=== PATIENT | male | born 2000 | race Caucasian/White ===

== ENCOUNTER 2023-05-09 18:32 | Emergency (ER) | payer SELFPAY ==
[2023-05-09 18:37] VITALS: BP 94/62; PULSE 64; RESP 18; TEMP 36.3; O2SAT 100; BMI 17.6
--- NOTE | 2023-05-09 18:47 | ED_ITS ---
HPI - Abdominal Pain General Chief Complaint: Nausea/Vomiting/Diarrhea Stated Complaint: Nausea/Vomiting Time Seen by Provider: 05/09/23 18:33 Source: patient Mode of arrival: walk-in Limitations: no limitations History of Present Illness HPI narrative: patient is a 22-year-old male who presents to the emergency department for the evaluation of abdominal pain and vomiting for the last three hours. Patient denies diarrhea or urinary symptoms. He reports generalized abdominal pain. He has not had any objective fevers. He states he is urinating without difficulty. No medications taken prior to arrival. No sick contacts in the home. He is not able to localize one area of abdominal pain. No flank or back pain. Related Data Previous Rx's Medication Instructions Recorded ondansetron 4 mg disintegrating 4 mg PO Q6H PRN nausea and 05/09/23 tablet vomiting #12 tabs pantoprazole 40 mg tablet,delayed 40 mg PO DAILY #7 tabs 05/09/23 release (Protonix) Allergies Allergy/AdvReac Type Severity Reaction Status Date / Time No Known Drug Allergies Allergy Verified 05/09/23 18:41 Review of Systems ROS Constitutional Denies: fever or chills Ears, nose, mouth, and throat Denies: throat pain or nasal congestion Cardiovascular Denies: chest pain Respiratory Denies: shortness of breath or cough Gastrointestinal Reports: abdominal pain, nausea and vomiting; Denies: diarrhea Musculoskeletal Denies: back pain or neck pain Integumentary/Breast Denies: rash Neurological Denies: headache PFSH PFSH Social History Smoking status: Current every day smoker Exam Narrative Exam Narrative: Gen.: Awake, alert, in no distress Head: Normocephalic, atraumatic ENT: Moist mucous membranes Respiratory: No respiratory distress, lungs clear bilaterally Cardio: Regular rate and rhythm Gastrointestinal: Abdomen is soft, nondistended with no focal areas of tenderness. No McBurney's tenderness, no guarding or rebound Extremities: Moves extremities equally Psych: Normal mood and affect Neuro: No focal neuro deficit Skin: Warm, dry, intact Constitutional Vital Signs, click to edit/add: Last Vital Signs Temp 97.4 F L 05/09/23 18:37 Pulse 64 05/09/23 18:37 Resp 18 05/09/23 18:37 BP 94/62 05/09/23 18:37 Pulse Ox 100 05/09/23 18:37 O2 Del Method Room Air 05/09/23 18:37 Course Vital Signs Vital signs: Vital Signs Temperature 97.4 F L 05/09/23 18:37 Pulse Rate 64 05/09/23 18:37 Respiratory Rate 18 05/09/23 18:37 Blood Pressure 94/62 05/09/23 18:37 Pulse Oximetry 100 05/09/23 18:37 Oxygen Delivery Method Room Air 05/09/23 18:37 Temperature 97.4 F L 05/09/23 18:37 Pulse Rate 64 05/09/23 18:37 Respiratory Rate 18 05/09/23 18:37 Blood Pressure 94/62 05/09/23 18:37 Pulse Oximetry 100 05/09/23 18:37 Oxygen Delivery Method Room Air 05/09/23 18:37 MDM - Abdominal Pain MDM Narrative Medical decision making narrative: patient was medicated with IV fluids, Zofran, Levsin and Protonix. He continued to have some complaints of nausea and hiccuping and was given IV Thorazine. He was able to tolerate ice chips. Lab studies are grossly unremarkable, bilirubin is slightly elevated. Patient has no focal tenderness in the right upper quadrant. CT of abdomen and pelvis with no evidence of cholelithiasis or cholecystitis. There is evidence of periportal edema noted by the radiologist, patient has normal LFTs, no transaminitis in the Emergency Room. He'll be discharged home with symptomatic treatment for nausea and vomiting. He was noted to have THC present on a urine drug screen, possible cyclic vomiting contributing to symptoms. Patient with abdomen soft and benign in the Emergency Room, he is discharged home with stable vital signs. Follow-up with primary care provider and return to the Emergency Room if symptoms change or worsen. Medical Records Attestation: I reviewed the patient's medical records. Lab Data Attestation: I reviewed the patient's lab results. Labs: Lab Results 05/09/23 Range/Units 18:48 WBC 12.6 H (4.0-11.0) 10^3/uL RBC 4.82 (4.70-6.10) 10^6/uL Hgb 15.2 (14.0-18.0) g/dL Hct 43.3 (42.0-54.0) % MCV 89.8 (80.0-94.0) fL MCH 31.5 (25.9-34.0) pg MCHC 35.1 (29.9-35.2) g/dL RDW 10.9 L (11.0-15.0) % Plt Count 354 (150-450) 10^3/uL MPV 9.8 (9.5-13.5) fL Neut % (Auto) 83.1 H (43.0-75.0) % Lymph % (Auto) 13.1 L (20.5-60.0) % [place] % (Auto) 3.3 (1.7-12.0) % Eos % (Auto) 0.0 L (0.9-7.0) % Baso % (Auto) 0.3 (0.2-2.0) % Neut # (Auto) 10.5 H (1.4-6.5) 10^3/uL Lymph # (Auto) 1.7 (1.2-3.8) 10^3/uL [place] # (Auto) 0.4 (0.3-0.8) 10^3/uL Eos # (Auto) 0.0 (0.0-0.7) 10^3/uL Baso # (Auto) 0.0 (0.0-0.1) 10^3/uL Abs Immat Gran (auto) 0.03 (0.00-0.03) 10^3/uL Imm/Tot Granulo (auto) 0.2 (0.0-0.5) % Sodium 138 (136-145) mmol/L Potassium 3.7 (3.5-5.1) mmol/L Chloride 101 (98-107) mmol/L Carbon Dioxide 25.4 (21.0-32.0) mmol/L Anion Gap 15.3 BUN 18.0 (7.0-18.0) mg/dL Creatinine 1.18 (0.70-1.30) mg/dL Est GFR ( Amer) >60 (>=60) Est GFR (Non-Af Amer) >60 (>=60) BUN/Creatinine Ratio 15.3 Glucose 134 H (74-106) mg/dL Calcium 9.4 (8.5-10.1) mg/dL Total Bilirubin 1.7 H (0.2-1.0) mg/dL AST 20 (15-37) U/L ALT 18 (16-63) U/L Alkaline Phosphatase 62 (46-116) U/L Total Protein 7.9 (6.4-8.2) g/dL Albumin 5.0 (3.4-5.0) g/dL Globulin 2.9 g/dL Albumin/Globulin Ratio 1.7 Lipase 29.0 (16.0-77.0) U/L Imaging Data CT scan - abdomen: Attestation: I have reviewed the pertinent imaging results. Radiologist's impression: Procedure: CT abdomen pelvis w con CT SCAN OF THE ABDOMEN AND PELVIS WITH CONTRAST, 05/09/2023 8:04 PM EDT COMPARISON: CT scan of the abdomen and pelvis, 08/09/2016. CLINICAL HISTORY: abdominal pain and vomiting, mucus buildup, shortness of breath, body aches for 3 hours. TECHNIQUE: 3 mm axial images performed through the abdomen and pelvis following administration of 100 mL of intravenous Omnipaque 350. 3 mm delayed acquisitions performed through the lower pelvis. 3 mm coronal and sagittal MPR reconstruction performed through the abdomen and pelvis. Dose reduction techniques were achieved by using automated exposure control and/or adjustment of mA and/or kV according to patient size and/or use of iterative reconstruction technique. ABDOMINAL CT SCAN FINDINGS: Lung bases are clear. Visualized heart is normal in size with no pericardial effusion. Mild periportal edema suspected. Remaining solid organs and gallbladder unremarkable in appearance. No significant adenopathy. Pelvic CT findings: Prostate and seminal vesicles unremarkable in appearance. Moderate amount of fecal matter in the rectum. No bowel obstruction identified. Appendix is normal. No acute osseous abnormality. IMPRESSION: 1. Mild periportal edema may be due to fluid overload but can also be due to some intrinsic liver disease including possibility of hepatitis and clinical correlation is recommended. 2. Moderate amount of fecal matter in the rectum with no bowel obstruction. Appendix is normal. Electronically authenticated by: Tom STRICKLAND Date: 05/09/2023 20:40 Discharge Plan Discharge Chief Complaint: Nausea/Vomiting/Diarrhea Clinical Impression: Nausea & vomiting, Abdominal pain Patient Disposition: Home, Self-Care Time of Disposition Decision: 21:24 Condition: Good Prescriptions / Home Meds: New pantoprazole [Protonix] 40 mg tablet,delayed release (DR/EC) 40 mg PO DAILY Qty: 7 0RF ondansetron 4 mg tablet,disintegrating 4 mg PO Q6H PRN (Reason: nausea and vomiting) Qty: 12 0RF Instructions: Acute Nausea and Vomiting (ED), Abdominal Pain (ED) Stand Alone Forms: Portal Instructions Referrals: TYLER DESHPANDE [Primary Care Provider] - 1 week
[2023-05-09] MEDS: PANTOPRAZOLE SODIUM 40 MG VIAL IV (19:09)
[2023-05-09] MEDS: HYOSCYAMINE SULFATE 0.125 MG TAB.SUBL SL (19:09)
[2023-05-09] MEDS: ONDANSETRON PF 4 MG/2 ML VIAL IV (19:09)
[2023-05-09] MEDS: 0.9 % SODIUM CHLORIDE 1,000 ML 999 ML IV (19:10)
[2023-05-09 19:45] LABS: Basophils Percent Auto 0.3 % (0.2-2.0); Hematocrit 43.3 % (42.0-54.0); Hemoglobin 15.2 g/dL (14.0-18.0); Immature Granulocytes Abs Auto 0.03 10^3/uL (0.00-0.03); Immature Granulocytes Pct Auto 0.2 % (0.0-0.5); Lymphocytes Absolute Auto 1.7 10^3/uL (1.2-3.8); Lymphocytes Percent Auto 13.1 % (20.5-60.0); Mean Corpuscular HGB Conc 35.1 g/dL (29.9-35.2); Mean Corpuscular Hemoglobin 31.5 pg (25.9-34.0); Mean Corpuscular Volume 89.8 fL (80.0-94.0); Mean Platelet Volume 9.8 fL (9.5-13.5); Monocytes Absolute Auto 0.4 10^3/uL (0.3-0.8); Monocytes Percent Auto 3.3 % (1.7-12.0); Neutrophils Absolute Auto 10.5 10^3/uL (1.4-6.5); Neutrophils Percent Auto 83.1 % (43.0-75.0); Platelet Count 354 10^3/uL (150-450); Red Blood Count 4.82 10^6/uL (4.70-6.10); Red Cell Distribution Width 10.9 % (11.0-15.0); White Blood Count 12.6 10^3/uL (4.0-11.0)
--- NOTE | 2023-05-09 19:54 | CT_ITS ---
The [address] [address] Patient Name: LOI CUEVAS MRN: [id number] date: 2000 Sex: M Assigned Patient Location: ER Current Patient Location: ED.MAIN Accession/Order Number: [id number] Exam Date: 05/09/2023 20:04 Report Date: 05/09/2023 20:40 At the request of: JENNIE WAGNER Procedure: CT abdomen pelvis w con CT SCAN OF THE ABDOMEN AND PELVIS WITH CONTRAST, 05/09/2023 8:04 PM EDT COMPARISON: CT scan of the abdomen and pelvis, 08/09/2016. CLINICAL HISTORY: abdominal pain and vomiting, mucus buildup, shortness of breath, body aches for 3 hours. TECHNIQUE: 3 mm axial images performed through the abdomen and pelvis following administration of 100 mL of intravenous Omnipaque 350. 3 mm delayed acquisitions performed through the lower pelvis. 3 mm coronal and sagittal MPR reconstruction performed through the abdomen and pelvis. Dose reduction techniques were achieved by using automated exposure control and/or adjustment of mA and/or kV according to patient size and/or use of iterative reconstruction technique. ABDOMINAL CT SCAN FINDINGS: Lung bases are clear. Visualized heart is normal in size with no pericardial effusion. Mild periportal edema suspected. Remaining solid organs and gallbladder unremarkable in appearance. No significant adenopathy. Pelvic CT findings: Prostate and seminal vesicles unremarkable in appearance. Moderate amount of fecal matter in the rectum. No bowel obstruction identified. Appendix is normal. No acute osseous abnormality. CT/CT abdomen pelvis w con IMPRESSION: 1. Mild periportal edema may be due to fluid overload but can also be due to some intrinsic liver disease including possibility of hepatitis and clinical correlation is recommended. 2. Moderate amount of fecal matter in the rectum with no bowel obstruction. Appendix is normal. Electronically authenticated by: Tom STRICKLAND Date: 05/09/2023 20:40
[2023-05-09 20:08] LABS: Alanine Aminotransferase 18 U/L (16-63); Albumin Globulin Ratio 1.7; Alkaline Phosphatase 62 U/L (46-116); Anion Gap 15.3; Aspartate Amino Transferase 20 U/L (15-37); BUN Creatinine Ratio 15.3; Bilirubin Total 1.7 mg/dL (0.2-1.0); Calcium 9.4 mg/dL (8.5-10.1); Carbon Dioxide 25.4 mmol/L (21.0-32.0); Chloride 101 mmol/L (98-107); Estimated GFR (African America >60 (>=60); Estimated GFR (Non-African Ame >60 (>=60); Globulin 2.9 g/dL; Glucose 134 mg/dL (74-106); Potassium 3.7 mmol/L (3.5-5.1); Sodium 138 mmol/L (136-145); Total Protein 7.9 g/dL (6.4-8.2)
[2023-05-09 20:46] LABS: Bilirubin Urine SMALL (NEGATIVE); Blood Urine NEGATIVE (NEGATIVE); Clarity Urine CLEAR (CLEAR); Color Urine YELLOW (YELLOW); Glucose Urine UA NEGATIVE (NEGATIVE); Ketones Urine >=80 mg/dL (NEGATIVE); Leukocyte Esterase Urine NEGATIVE (NEGATIVE); Nitrite Urine NEGATIVE (NEGATIVE); Protein Urine TRACE mg/dL (NEG/TRACE); Specific Gravity Urine >=1.030 (1.005-1.025); Urobilinogen Urine 0.2 EU/dL (0.2-1.0); pH Urine 5.5 (5.0-9.0)
[2023-05-09 20:47] LABS: Urine Microscopic Indicated NO
[2023-05-09 21:06] LABS: Cannabinoid Screen Urine POSITIVE (NEGATIVE); Cocaine Screen Urine NEGATIVE (NEGATIVE); Methamphetamines Screen Urine NEGATIVE (NEGATIVE); Phencyclidine Screen Urine NEGATIVE (NEGATIVE)
[2023-05-09 21:07] LABS: Amphetamine Screen Urine NEGATIVE (NEGATIVE); Barbiturates Screen Urine NEGATIVE (NEGATIVE); Benzodiazepines Screen Urine NEGATIVE (NEGATIVE); Buprenorphine Screen Urine NEGATIVE (NEGATIVE); Methadone Screen Urine NEGATIVE (NEGATIVE); Opiate Screen Urine NEGATIVE (NEGATIVE); Oxycodone Screen Urine NEGATIVE (NEGATIVE); Tricyclic Antidepressant Urine NEGATIVE (NEGATIVE)
[2023-05-09] MEDS: ONDANSETRON 4 MG RAPDIS TABLET 8 MG SL (21:39)
[2023-05-09 22:06] VITALS: BP 97/47; PULSE 72; RESP 16; O2SAT 97
== END 2023-05-09 22:08 | disposition home or self-care (01) ==
PROVIDERS: Physician Assistant; Emergency Provider Student in an Organized Health Care Education/Training Program; PCP Family Medicine
DX: R10.9 Unspecified abdominal pain (principal); R11.2 Nausea with vomiting, unspecified; F17.210 Nicotine dependence, cigarettes, uncomplicated
CPT/HCPCS: 36415; 74177; 80053; 80307; 81003; 83690; 85025; 96361; 96374; 96375; 99285; Q9967